=== PATIENT | female | born 1980 | race Two or more races ===

== ENCOUNTER 2019-05-20 03:07 | Emergency (ER) | payer MEDICAID ==
[~2019-05-20] VITALS: Ht 152.4 cm; Wt 50.0 kg
[2019-05-20 04:22] VITALS: BP 90/54
== END 2019-05-20 07:14 | disposition home or self-care (01) ==
LOC: ED 07:05
DX: F10.120 Alcohol abuse with intoxication, uncomplicated (principal)
CPT/HCPCS: 99283